=== PATIENT | male | born 1965 | race Two or more races ===

== ENCOUNTER 2020-02-18 17:37 | Inpatient (IN) | payer MEDICAID ==
[~2020-02-18] VITALS: Ht 175.3 cm; Wt 57.2 kg
[~2020-02-18 17:37] MED LIST: ACETAMINOPHEN 650 MG/SUPP.RECT RC PRN; ONDANSETRON HCL/PF 4 MG/2 ML VIAL IVP PRN
--- NOTE | 2020-02-18 18:05 | NUR ---
covid swab collected and sent to lab
[2020-02-18 18:22] LABS: BASOPHILS % (AUTO) 0.1 % (0.0-2.0); EOSINOPHILS % (AUTO) 0.3 % (0.0-6.0); HEMATOCRIT 43 % (39-51); HEMOGLOBIN 13.9 g/dL (13.5-17.5); LYMPHOCYTES # (AUTO) 0.6 /CMM (0.8-4.8); LYMPHOCYTES % (AUTO) 2.5 % (20.0-44.0); MEAN CORPUSCULAR HGB CONC 33 g/dl (31.0-36.0); MEAN CORPUSCULAR VOLUME 90 fL (80-96); NEUTROPHILS # (AUTO) 22.4 /CMM (1.8-8.9); NEUTROPHILS % (AUTO) 93.1 % (43.0-81.0); PLATELET COUNT (AUTO) 195 /CMM (150-450); RED BLOOD CELL COUNT(AUTO) 4.74 MIL/uL (4.5-6.0)
[2020-02-18] MEDS ORDERED: DEXAMETHASONE SOD PHOSPHATE 10 MG/ML VIAL IV ONE (19:00)
[2020-02-18 19:04] LABS: ALANINE AMINOTRANSFERASE 60 U/L (12-78); ALBUMIN 2.2 g/dL (3.4-5.0); ALKALINE PHOSPHATASE 108 U/L (46-116); ASPARTATE AMINOTRANSFERASE 92 U/L (15-37); BILIRUBIN,DIRECT 0.2 mg/dL (0.0-0.2); BILIRUBIN,TOTAL 0.5 mg/dL (0.2-1.0); CALCIUM, SERUM 9.3 mg/dL (8.5-10.1); CARBON DIOXIDE 13 mmol/L (21-32); CHLORIDE 103 mmol/L (98-107); GLUCOSE 145 mg/dL (74-106); SODIUM SERUM 142 mmol/L (136-145); TOTAL PROTEIN, SERUM 7.9 g/dL (6.4-8.2)
--- NOTE | 2020-02-18 19:08 | NUR ---
JUANA ZAZUETA [phone] (MOTHER)
[2020-02-18] MEDS ORDERED: DEXAMETHASONE SOD PHOSPHATE 10 MG/ML VIAL ONE (19:09)
--- NOTE | 2020-02-18 19:14 | NUR ---
LAB CALLED REGARDING POSITIVE COVID RESULT
[2020-02-18 19:16] LABS: POTASSIUM 7.3 mmol/L (3.5-5.1)
[2020-02-18 19:17] LABS: CREATININE 10.7 mg/dL (0.6-1.3); UREA NITROGEN, BLOOD 169 mg/dL (7-18)
[2020-02-18] MEDS ORDERED: DEXTROSE 50%-WATER 50 ML DISP.SYRIN IV ONE (19:30)
[2020-02-18] MEDS ORDERED: SODIUM POLYSTYRENE SULFONATE 15 G/60 ML BOTTLE PO ONE (19:30)
[2020-02-18] MEDS ORDERED: INSULIN REGULAR, HUMAN 100 UNIT/ML 10 ML VIAL IV ONE (19:30)
[2020-02-18] MEDS ORDERED: SODIUM BICARBONATE SYR 50 MEQ/50 ML DISP.SYRIN IV ONE ×3 (19:30→20:00)
--- NOTE | 2020-02-18 19:46 | NUR ---
PAGED [facility].
--- NOTE | 2020-02-18 19:48 | NUR ---
PAGED [facility] FOR CONSULT. WILL CALL BACK.
--- NOTE | 2020-02-18 19:53 | NUR ---
DR. FOWLER TALKING TO DR. MILNER REGARDING PT.
[2020-02-18] MEDS ORDERED: INSULIN REGULAR, HUMAN 100 UNIT/ML 10 ML VIAL ONE (20:02)
[2020-02-18] MEDS ORDERED: SODIUM BICARBONATE SYR 50 MEQ/50 ML DISP.SYRIN ONE ×2 (20:02→20:07)
[2020-02-18] MEDS ORDERED: FUROSEMIDE 20 MG/2 ML VIAL IV STA (20:02)
[2020-02-18] MEDS ORDERED: DEXTROSE 50%-WATER 50 ML DISP.SYRIN ONE (20:02)
[2020-02-18] MEDS ORDERED: FUROSEMIDE 40 MG/4 ML VIAL ONE (20:06)
[2020-02-18] MEDS ORDERED: SODIUM POLYSTYRENE SULFONATE 15 G/60 ML BOTTLE ONE ×2 (20:06→20:08)
[2020-02-18] MEDS ORDERED: Calcium Gluconate 0.465 MEQ/ML VIAL IV ONE (20:26)
--- NOTE | 2020-02-18 20:26 | NUR ---
REPORT GIVEN TO RESEARCH DIETITIAN SERGIO. WILL TRANSPORT PT VIA ACLS PROTOCOL.
[2020-02-18] MEDS ORDERED: Calcium Gluconate 1GM/10ML 9.3 MEQ in IV D5W 250 ML IV ONE (20:30)
--- NOTE | 2020-02-18 20:45 | NUR ---
NO URINE OUTPUT, MD AWARE
[2020-02-18] MEDS ORDERED: PIPERACILLIN /TAZOBACTAM 3.375 G VIAL IV ONE (20:47)
[2020-02-18] MEDS ORDERED: AZITHROMYCIN 500 MG VIAL ONE (20:47)
[2020-02-18] MEDS ORDERED: PIPERACILLIN /TAZOBACTAM 3.375 G in IV D5W 50 ML IV ONE (21:00)
[2020-02-18] MEDS ORDERED: AZITHROMYCIN 500 MG in IV D5W 250 ML IV ONE (21:00)
[2020-02-18] MEDS ORDERED: DOXA4TAB3 GT (21:01)
[2020-02-18] MEDS ORDERED: MAGN400T8 GT (21:01)
[2020-02-18] MEDS ORDERED: VIT500LI GT (21:01)
[2020-02-18] MEDS ORDERED: ZINC220T4 GT (21:01)
[2020-02-18] MEDS ORDERED: CYCL10TA9 GT (21:01)
[2020-02-18] MEDS ORDERED: BACL10TA GT (21:01)
[2020-02-18] MEDS ORDERED: ENOX40DI SQ (21:01)
[2020-02-18] MEDS ORDERED: DOCU-141 GT (21:01)
[2020-02-18] MEDS ORDERED: DIPH-530 GT (21:01)
[2020-02-18] MEDS ORDERED: ZINC500P16 MC (21:01)
[2020-02-18] MEDS ORDERED: SENN-18 GT (21:01)
[2020-02-18] MEDS ORDERED: CRAN3875 GT (21:01)
[2020-02-18] MEDS ORDERED: HALO5TAB GT (21:01)
[2020-02-18] MEDS ORDERED: PANT40TA2 GT (21:01)
[2020-02-18] MEDS ORDERED: MULT237L4 GT (21:01)
[2020-02-18] MEDS ORDERED: ALBUTEROL SULFATE 8 GM HFA.AER.AD IH PRN (21:30)
--- NOTE | 2020-02-18 21:33 | NUR ---
PT TRANSFERRED TO ICU PER ACLS PROTOCOL
[2020-02-18 22:00] VITALS: BP 111/55
[2020-02-18] MEDS: IV NS 0.9% 1,000 ML IV PRN (22:00)
[2020-02-18 22:33] LABS: ABG BASE EXCESS -11.3 mmol/L; ABG OXYGEN SATURATION 99.7 % (92.0-98.5); ABG PCO2 24.9 mmHg (35.0-45.0); ABG PH 7.332 (7.350-7.450); ABG PO2 247.1 mmHg (75.0-100.0); COHb 0.9 % (0.5-1.5); MetHb 0.3 % (0.0-1.5); O2Hb 98.5 % (94.0-97.0); SITE, ABG Right Brachial; VENT MODE, BG Non rebreather
[2020-02-18 23:00] VITALS: BP 99/40
[2020-02-18] MEDS ORDERED: VANCOMYCIN HCL 0.75 GM in IV D5W 250 ML IV ONE (23:00)
[2020-02-18] MEDS ORDERED: VANCOMYCIN 1 GM VIAL ONE (23:35)
[2020-02-19] VITALS (44 sets, daily range): BP systolic 79–113; BP diastolic 46–76
[2020-02-19 00:38] LABS: CALCIUM, SERUM 8.7 mg/dL (8.5-10.1)
[2020-02-19 00:41] LABS: CREATININE 10.2 mg/dL (0.6-1.3); POTASSIUM 6.7 mmol/L (3.5-5.1)
[2020-02-19 00:42] LABS: PHOSPHORUS 8.4 mg/dL (2.5-4.9)
[2020-02-19 01:05] LABS: BILIRUBIN,URINE SMALL (NEGATIVE); COLOR,URINE BROWN (YELLOW); LEUKOCYTE ESTERASE ,URINE LARGE (NEGATIVE); NITRITE, URINE NEGATIVE (NEGATIVE); PH,URINE 8.5 (5.0-8.0); PROTEIN,URINE >=300 mg/dl (NEGATIVE); UGLUCOSE NEGATIVE (NEGATIVE); UROBILINOGEN,URINE 0.2 EU/dL (0.2)
[2020-02-19 01:15] LABS: BACTERIA,URINE Moderate /HPF (None Seen); RBC,URINE 51-80 /HPF (0-2); WBC,URINE TOO NUMEROUS TO COUN /HPF (0-3)
[2020-02-19 01:16] LABS: SQUAMOUS EPITHELIAL CELL,UR Rare /HPF (None Seen)
[2020-02-19 05:43] LABS: ALBUMIN 1.7 g/dL (3.4-5.0); BILIRUBIN,TOTAL 0.6 mg/dL (0.2-1.0); CALCIUM, SERUM 8.1 mg/dL (8.5-10.1); MAGNESIUM 2.6 mg/dL (1.8-2.4); POTASSIUM 4.8 mmol/L (3.5-5.1); TOTAL PROTEIN, SERUM 6.3 g/dL (6.4-8.2)
[2020-02-19 05:47] LABS: CREATININE 10.2 mg/dL (0.6-1.3)
[2020-02-19 06:03] LABS: C-REACTIVE PROTEIN 39.6 mg/dL (0.0-0.9)
[2020-02-19 06:23] LABS: BASOPHILS % (AUTO) 0.2 % (0.0-2.0); EOSINOPHILS % (AUTO) 7.1 % (0.0-6.0); HEMATOCRIT 36 % (39-51); HEMOGLOBIN 11.9 g/dL (13.5-17.5); LYMPHOCYTES # (AUTO) 0.4 /CMM (0.8-4.8); LYMPHOCYTES % (AUTO) 2.1 % (20.0-44.0); MEAN CORPUSCULAR HGB CONC 33 g/dl (31.0-36.0); MEAN CORPUSCULAR VOLUME 91 fL (80-96); MONOCYTES # (AUTO) 0.6 /CMM (0.1-1.30); NEUTROPHILS # (AUTO) 18.7 /CMM (1.8-8.9); NEUTROPHILS % (AUTO) 87.6 % (43.0-81.0); PLATELET COUNT (AUTO) 65 /CMM (150-450); RED BLOOD CELL COUNT(AUTO) 4.01 MIL/uL (4.5-6.0); WHITE BLOOD COUNT (AUTO) 21.3 K/uL (4.3-11.0)
--- NOTE | 2020-02-19 06:52 | NUR ---
notified Gwendolyn Tuttle KENNEL HELPER about patients low blood pressure and received orders to start levo to keep sbp > 90. Also notified about critical lab values of lactic acid 3.4 and received orders to give a 500 ml bolus x 1. As well as, platelets at 65 with no new orders. read back orders performed and carried out. will continue to monitor.
[2020-02-19] MEDS ORDERED: IV NS 0.9% 500 ML IV ONE (07:00)
[2020-02-19] MEDS ORDERED: VANCOMYCIN 500 MG in IV D5W 100 ML IV PRN (08:30)
--- NOTE | 2020-02-19 08:31 | NUR ---
patient remains in no acute distress in bed. patient did not have any significant change in condition during shift. all needs met, all orders carried out. will endorse care to am RN for continuity fo care.
[2020-02-19 08:41] LABS: ABG OXYGEN SATURATION 97.3 % (92.0-98.5); ABG PCO2 25.1 mmHg (35.0-45.0); ABG PH 7.357 (7.350-7.450); ABG PO2 105.8 mmHg (75.0-100.0); AaDO2 294.4 mmHg; COHb 0.1 % (0.5-1.5); MetHb 0.2 % (0.0-1.5); SITE, ABG Right Radial; VENT MODE, BG SIMPLE MASK
[2020-02-19] MEDS: CALCIUM ACETATE 667 MG TABLET PO SCH ×3 (09:29→19:02)
[2020-02-19] MEDS: DEXAMETHASONE SOD PHOSPHATE 10 MG/ML VIAL IV SCH (09:29)
[2020-02-19] MEDS ORDERED: Z GUARD REMEDY 2 OZ OINT TP PRN (09:30)
[2020-02-19 09:32] LABS: BAND % (MANUAL) 11 % (0.0-5.0); LYMPHOCYTES % (MANUAL) 4 % (16-48); MONOCYTES % (MANUAL) 2 % (0-11.0); MYELOCYTES % 1 % (0-0); NEUTROPHILS % (MANUAL) 82 (42-76)
--- NOTE | 2020-02-19 09:33 | NUR ---
WOUND CARE CONSULT: REVIEWED CHART, NURSING DOCUMENTATION AND PHOTOS WHICH INDICATE INTACT DEEP TISSUE INJURIES, PRESENT ON ADMISSION. RECOMMENDATIONS MADE FOR SKIN PROTECTION AND WOUND CARE. DISCUSSED WITH NURSING STAFF. FIRST STEP KATHY BARAKAT IS ON ORDER. MD IN AGREEMENT WITH PLAN OF CARE.
[2020-02-19] MEDS: Z GUARD REMEDY 2 OZ OINT TP SCH (09:35)
[2020-02-19] MEDS ORDERED: HEPARIN SODIUM, PORCINE 5000 UNITS/1 ML VIAL SQ SCH (10:30)
[2020-02-19] MEDS: PIPERACILLIN /TAZOBACTAM 2.25 G in IV D5W 50 ML IV SCH ×2 (11:15→16:22)
[2020-02-19] MEDS: NOREPINEPHRINE 32 MG in IV NS 0.9% 218 ML IV PRN (11:37)
--- NOTE | 2020-02-19 19:00 | NUR ---
RECEIVED PATIENT LETHARGIC,AWAKENS TO TOUCH AND PAIN BUT NOT TALKING,NOT FOLLOWING COMMANDS.CONTRACTED EXTREMITIES.ON O2 VIA NC @ 6 L/MIN, BREATHING REGULAR, NON LABORED,NOT IN ANY ACUTE RESPIRATORY DISTRESS. ON LEVOPHED DRIP FOR HOLLY SUPPORT,TRIPLE LUMEN CATH.VIA RIGHT SUBCLAVIAN, HD CATH @ RIGHT FEMORAL AREA, S/P HD TODAY. COMFORT CARE DONE,NEEDS ATTENDED.ON DROPLET/CONTACT PRECAUTION FOR COVID 19
[2020-02-19] MEDS: MEROPENEM 500 MG in IV NS 0.9% 50 ML IV SCH (20:46)
[2020-02-19] MEDS: IV NS 0.9% 1,000 ML IV PRN (23:12)
--- NOTE | 2020-02-19 23:57 | NUR ---
LAB CALLED.COVID PCR TEST + .
[2020-02-20] VITALS (76 sets, daily range): BP systolic 74–132; BP diastolic 44–95
[2020-02-20 04:42] LABS: BASOPHILS # (AUTO) 0.1 /CMM (0.0-0.2); BASOPHILS % (AUTO) 0.3 % (0.0-2.0); EOSINOPHILS % (AUTO) 0.3 % (0.0-6.0); HEMATOCRIT 34 % (39-51); HEMOGLOBIN 11.3 g/dL (13.5-17.5); LYMPHOCYTES # (AUTO) 0.5 /CMM (0.8-4.8); LYMPHOCYTES % (AUTO) 1.5 % (20.0-44.0); MEAN CORPUSCULAR HGB CONC 33 g/dl (31.0-36.0); MEAN CORPUSCULAR VOLUME 90 fL (80-96); MONOCYTES # (AUTO) 1.6 /CMM (0.1-1.30); MONOCYTES % (AUTO) 4.9 % (2.0-12.0); NEUTROPHILS # (AUTO) 31.1 /CMM (1.8-8.9); RED BLOOD CELL COUNT(AUTO) 3.84 MIL/uL (4.5-6.0)
[2020-02-20 04:54] LABS: CALCIUM, SERUM 7.9 mg/dL (8.5-10.1); CREATININE 6.7 mg/dL (0.6-1.3); MAGNESIUM 2.6 mg/dL (1.8-2.4); PHOSPHORUS 7.6 mg/dL (2.5-4.9); POTASSIUM 3.8 mmol/L (3.5-5.1)
[2020-02-20 04:55] LABS: PLATELET COUNT (AUTO) 29 /CMM (150-450); WHITE BLOOD COUNT (AUTO) 33.4 K/uL (4.3-11.0)
[2020-02-20 05:32] LABS: BAND % (MANUAL) 11 % (0.0-5.0); LYMPHOCYTES % (MANUAL) 2 % (16-48); MONOCYTES % (MANUAL) 8 % (0-11.0); NEUTROPHILS % (MANUAL) 79 (42-76)
[2020-02-20] MEDS: Z GUARD REMEDY 2 OZ OINT TP SCH (08:25)
[2020-02-20] MEDS: DEXAMETHASONE SOD PHOSPHATE 10 MG/ML VIAL IV SCH (08:25)
[2020-02-20] MEDS: CALCIUM ACETATE 667 MG TABLET PO SCH ×3 (08:25→18:28)
[2020-02-20] MEDS: NOREPINEPHRINE 32 MG in IV NS 0.9% 218 ML IV PRN (10:06)
[2020-02-20] MEDS: MEROPENEM 500 MG in IV NS 0.9% 50 ML IV SCH (20:39)
[2020-02-20] MEDS: IV 1/2NS 1000 ML 1,000 ML IV PRN (20:44)
[2020-02-21] VITALS (74 sets, daily range): BP systolic 80–154; BP diastolic 50–95
[2020-02-21] MEDS: IV 1/2NS 1000 ML 1,000 ML IV PRN ×2 (05:20→22:41)
[2020-02-21 05:38] LABS: BASOPHILS % (AUTO) 0.2 % (0.0-2.0); HEMATOCRIT 35 % (39-51); HEMOGLOBIN 11.6 g/dL (13.5-17.5); LYMPHOCYTES # (AUTO) 0.8 /CMM (0.8-4.8); MEAN CORPUSCULAR HGB CONC 33 g/dl (31.0-36.0); MEAN CORPUSCULAR VOLUME 89 fL (80-96); MONOCYTES # (AUTO) 1.4 /CMM (0.1-1.30); NEUTROPHILS # (AUTO) 24.8 /CMM (1.8-8.9); NEUTROPHILS % (AUTO) 91.8 % (43.0-81.0); RED BLOOD CELL COUNT(AUTO) 3.95 MIL/uL (4.5-6.0)
[2020-02-21 05:40] LABS: PLATELET COUNT (AUTO) 17 /CMM (150-450)
[2020-02-21 06:06] LABS: COMPLEMENT C3, SERUM 126 mg/dL (82-167); COMPLEMENT C4, SERUM 24 mg/dL (12-38)
[2020-02-21 06:08] LABS: BAND % (MANUAL) 2 % (0.0-5.0); LYMPHOCYTES % (MANUAL) 2 % (16-48); MONOCYTES % (MANUAL) 3 % (0-11.0); NEUTROPHILS % (MANUAL) 93 (42-76)
[2020-02-21 06:12] LABS: BILIRUBIN,TOTAL 0.6 mg/dL (0.2-1.0); CALCIUM, SERUM 8.1 mg/dL (8.5-10.1); MAGNESIUM 2.3 mg/dL (1.8-2.4); PHOSPHORUS 5.8 mg/dL (2.5-4.9)
[2020-02-21 06:51] LABS: ALBUMIN 1.4 g/dL (3.4-5.0)
--- NOTE | 2020-02-21 07:30 | NUR ---
RECEIVED PATIENT IN BED. NO ACUTE DISTRESS NOTED. PATIENT NONVERBAL, OPENS EYES TO SOUND, UNABLE TO FOLLOW COMMANDS. PATIENT ON NONREBREATHER, 8L SATURATING WELL. PATIENT ON CONTAINER SHOP WELDER, NSR NOTED. PATIENT NPO STATUS OBSERVED, WILL ORDER SWALLOW EVAL. PATIENT DOMINGUEZ CATHETER INTACT, DRAINING TO GRAVITY. PATIENT TLC RIGHT SUBCLAVIAN INTACT, PATENT, FLUSHED WELL. PATIENT SAFETY MEASURES MAINTAINED. WILL CONTINUE TO MONITOR.
[2020-02-21] MEDS: CALCIUM ACETATE 667 MG TABLET PO SCH ×3 (08:00→17:59)
[2020-02-21] MEDS: Z GUARD REMEDY 2 OZ OINT TP SCH (08:45)
[2020-02-21] MEDS: DEXAMETHASONE SOD PHOSPHATE 10 MG/ML VIAL IV SCH (08:45)
[2020-02-21 08:51] LABS: ABG BASE EXCESS -1.9 mmol/L; ABG OXYGEN SATURATION 90.9 % (92.0-98.5); ABG PCO2 28.9 mmHg (35.0-45.0); ABG PH 7.472 (7.350-7.450); ABG PO2 63.2 mmHg (75.0-100.0); AaDO2 620.9 mmHg; COHb 1.1 % (0.5-1.5); MetHb 0.1 % (0.0-1.5); O2Hb 89.8 % (94.0-97.0); SITE, ABG Left Radial; VENT MODE, BG NRB
[2020-02-21 16:32] LABS: HEMOGLOBIN 12.1 g/dL (13.5-17.5); MEAN CORPUSCULAR HGB CONC 33 g/dl (31.0-36.0); RED BLOOD CELL COUNT(AUTO) 4.17 MIL/uL (4.5-6.0)
[2020-02-21 16:37] LABS: BASOPHILS % (AUTO) 0.1 % (0.0-2.0); HEMATOCRIT 37 % (39-51); LYMPHOCYTES # (AUTO) 0.6 /CMM (0.8-4.8); LYMPHOCYTES % (AUTO) 2.7 % (20.0-44.0); MEAN CORPUSCULAR VOLUME 89 fL (80-96); MONOCYTES # (AUTO) 0.6 /CMM (0.1-1.30); MONOCYTES % (AUTO) 2.7 % (2.0-12.0); NEUTROPHILS # (AUTO) 21.8 /CMM (1.8-8.9); NEUTROPHILS % (AUTO) 94.5 % (43.0-81.0); WHITE BLOOD COUNT (AUTO) 23.1 K/uL (4.3-11.0)
[2020-02-21 17:26] LABS: PLATELET COUNT (AUTO) 17 /CMM (150-450)
[2020-02-21] MEDS ORDERED: NOREPINEPHRINE 8 MG in IV NS 0.9% 250ML IV PRN (18:00)
--- NOTE | 2020-02-21 18:42 | NUR ---
PATIENT IN BED. NO ACUTE DISTRESS NOTED. PATIENT NONVERBAL, OPENS EYES TO SOUND, UNABLE TO FOLLOW COMMANDS. PATIENT ON NONREBREATHER, 15L SATURATING WELL. PATIENT ON FINANCIAL SYSTEMS ADMINISTRATOR, NSR NOTED. PATIENT NPO STATUS OBSERVED, WILL ORDER SWALLOW EVAL. PATIENT DOMINGUEZ CATHETER INTACT, DRAINING TO GRAVITY. PATIENT TLC RIGHT SUBCLAVIAN INTACT, PATENT, FLUSHED WELL. PATIENT SAFETY MEASURES MAINTAINED. WILL ENDORSE PLAN OF CARE TO ONCOMING SHIFT
[2020-02-21 18:45] LABS: BAND % (MANUAL) 1 % (0.0-5.0); LYMPHOCYTES % (MANUAL) 6 % (16-48); NEUTROPHILS % (MANUAL) 93 (42-76)
[2020-02-21] MEDS: NOREPINEPHRINE 32 MG in IV NS 0.9% 218 ML IV PRN (20:08)
--- NOTE | 2020-02-21 21:33 | NUR ---
agricultural economics teacher. initial assessment. received the pt rest on the bed. nonverbal. does not follow commands. cardiac surgeon showing nsr, iv rt subclavian triple lumen , lt femoral hd cath. levophed 0.15mcg/kg/min,hob elevated. fc patent. oxygen nonrebreather will continue to monitor vitals
[2020-02-21] MEDS: MEROPENEM 500 MG in IV NS 0.9% 50 ML IV SCH (22:41)
[2020-02-22] VITALS (68 sets, daily range): BP systolic 98–144; BP diastolic 55–91
--- NOTE | 2020-02-22 04:00 | NUR ---
RENTAL COORDINATOR. AM CARE, ORAL CARE, BED BATH GIVEN. LINEN CHANGED. REMAINING SAME OXYGEN TOLERATED WELL. SAT 98%,. NO ACUTE DISTRESS NOTED, BLOCK MAKING MACHINE OPERATOR SHOWING NSR. IV RT SUBCLAVIAN TLC. 11/2NS 50ML/H,LEVOPHED 0.15MCG/KG/MIN, HOB ELEVATED. FC PATENT. VERY LOW OUT PUT. WILL CONTINUE TO MONITOR VITALS.
[2020-02-22 04:33] LABS: BASOPHILS % (AUTO) 0.1 % (0.0-2.0); EOSINOPHILS % (AUTO) 0.1 % (0.0-6.0); HEMATOCRIT 36 % (39-51); HEMOGLOBIN 12.1 g/dL (13.5-17.5); LYMPHOCYTES # (AUTO) 0.7 /CMM (0.8-4.8); LYMPHOCYTES % (AUTO) 2.9 % (20.0-44.0); MEAN CORPUSCULAR HGB CONC 33 g/dl (31.0-36.0); MEAN CORPUSCULAR VOLUME 89 fL (80-96); MONOCYTES # (AUTO) 0.9 /CMM (0.1-1.30); MONOCYTES % (AUTO) 3.6 % (2.0-12.0); NEUTROPHILS # (AUTO) 23.1 /CMM (1.8-8.9); NEUTROPHILS % (AUTO) 93.3 % (43.0-81.0); RED BLOOD CELL COUNT(AUTO) 4.09 MIL/uL (4.5-6.0); WHITE BLOOD COUNT (AUTO) 24.8 K/uL (4.3-11.0)
[2020-02-22 04:43] LABS: PLATELET COUNT (AUTO) 16 /CMM (150-450)
[2020-02-22 05:01] LABS: ALBUMIN 1.5 g/dL (3.4-5.0); BILIRUBIN,TOTAL 0.8 mg/dL (0.2-1.0); CALCIUM, SERUM 8.1 mg/dL (8.5-10.1); MAGNESIUM 2.2 mg/dL (1.8-2.4); PHOSPHORUS 6.3 mg/dL (2.5-4.9); POTASSIUM 4.1 mmol/L (3.5-5.1); TOTAL PROTEIN, SERUM 6.2 g/dL (6.4-8.2)
[2020-02-22 05:06] LABS: BAND % (MANUAL) 2 % (0.0-5.0); LYMPHOCYTES % (MANUAL) 4 % (16-48); MONOCYTES % (MANUAL) 4 % (0-11.0); NEUTROPHILS % (MANUAL) 90 (42-76)
--- NOTE | 2020-02-22 07:30 | NUR ---
RECEIVED PATIENT IN BED. NO ACUTE DISTRESS NOTED. PATIENT NONVERBAL, OPENS EYES TO SOUND, UNABLE TO FOLLOW COMMANDS. PATIENT ON NONREBREATHER, 15L SATURATING WELL, RT IN ROOM MAKING ROUNDS. PATIENT ON DIRECTOR NEWS, NSR NOTED. PATIENT NPO STATUS OBSERVED, WILL FOLLOW UP WITH SWALLOW EVAL. PATIENT DOMINGUEZ CATHETER INTACT, DRAINING TO GRAVITY. PATIENT TLC RIGHT SUBCLAVIAN INTACT, PATENT, FLUSHED WELL. PATIENT SAFETY MEASURES MAINTAINED. WILL CONTINUE TO MONITOR.
[2020-02-22] MEDS: CALCIUM ACETATE 667 MG TABLET PO SCH ×3 (08:00→17:18)
[2020-02-22] MEDS: Z GUARD REMEDY 2 OZ OINT TP SCH (08:23)
[2020-02-22] MEDS: DEXAMETHASONE SOD PHOSPHATE 10 MG/ML VIAL IV SCH (08:23)
[2020-02-22 12:06] LABS: *ANA ANTI-CENTROMERE B AB <0.2 AI (0.0-0.9); *ANA ANTI-DNA(DS) AB, QN <1 IU/mL (0-9); *ANA ANTI-JO-1 <0.2 AI (0.0-0.9); *ANA ANTICHROMATIN ANTIBODY <0.2 AI (0.0-0.9); *ANA RNP ANTIBODIES 0.3 AI (0.0-0.9); *ANA SJOGREN'S ANTI-SS-A <0.2 AI (0.0-0.9); *ANA SJOGREN'S ANTI-SS-B <0.2 AI (0.0-0.9); *ANAANTI-SCLERODERMA-70 AB <0.2 AI (0.0-0.9); *ANASMITH AB <0.2 AI (0.0-0.9)
[2020-02-22 12:36] LABS: ABG BASE EXCESS -1.7 mmol/L; ABG OXYGEN SATURATION 92.2 % (92.0-98.5); ABG PCO2 31.6 mmHg (35.0-45.0); ABG PO2 67.3 mmHg (75.0-100.0); AaDO2 614.1 mmHg; COHb 1.3 % (0.5-1.5); MetHb 0.3 % (0.0-1.5); O2Hb 90.7 % (94.0-97.0); SITE, ABG Right Radial; VENT MODE, BG NRB 100%
[2020-02-22] MEDS: MEROPENEM 500 MG in IV NS 0.9% 50 ML IV SCH (13:14)
[2020-02-22] MEDS: IV 1/2NS 1000 ML 1,000 ML IV PRN (18:18)
--- NOTE | 2020-02-22 18:38 | NUR ---
PATIENT IN BED. NO ACUTE DISTRESS NOTED. PATIENT NONVERBAL, OPENS EYES TO SOUND, UNABLE TO FOLLOW COMMANDS. PATIENT ON NONREBREATHER, 15L SATURATING WELL. PATIENT ON TELLER COORDINATOR, NSR NOTED. PATIENT DOMINGUEZ CATHETER INTACT, DRAINING TO GRAVITY. PATIENT TLC RIGHT SUBCLAVIAN INTACT, PATENT, FLUSHED WELL. PATIENT SAFETY MEASURES MAINTAINED. WILL ENDORSE PLAN OF CARE TO ONCOMING SHIFT
--- NOTE | 2020-02-22 19:58 | NUR ---
RECEIVED PATIENT IN BED. PATIENT NONVERBAL, OPENS EYES TO SOUND, UNABLE TO FOLLOW COMMANDS. PATIENT ON NONREBREATHER, 15L SATURATING WELL. ON LOGISTICS ACCOUNT MANAGER, NSR NOTED. PATIENT NPO STATUS OBSERVED, PATIENT DOMINGUEZ CATHETER INTACT, DRAINING TO GRAVITY. PATIENT TLC RIGHT SUBCLAVIAN INTACT, PATENT, FLUSHED WELL WITH NS. BED LOCKED AND IN LOWEST POSITION. ALL SAFETY MEASURES IMPLEMENTED PER HOSPITAL PROTOCOL. WILL CONTINUE TO MONITOR.
[2020-02-23] VITALS (83 sets, daily range): BP systolic 76–134; BP diastolic 50–94
[2020-02-23] MEDS: MEROPENEM 500 MG in IV NS 0.9% 50 ML IV SCH ×2 (01:09→12:36)
[2020-02-23 05:17] LABS: BILIRUBIN,TOTAL 0.8 mg/dL (0.2-1.0); CALCIUM, SERUM 8.2 mg/dL (8.5-10.1); CREATININE 3.9 mg/dL (0.6-1.3); MAGNESIUM 2.3 mg/dL (1.8-2.4); PHOSPHORUS 5.9 mg/dL (2.5-4.9)
[2020-02-23 05:20] LABS: ALBUMIN 1.4 g/dL (3.4-5.0)
[2020-02-23 05:27] LABS: BASOPHILS % (AUTO) 0.1 % (0.0-2.0); HEMATOCRIT 37 % (39-51); HEMOGLOBIN 11.9 g/dL (13.5-17.5); LYMPHOCYTES # (AUTO) 0.6 /CMM (0.8-4.8); LYMPHOCYTES % (AUTO) 2.3 % (20.0-44.0); MEAN CORPUSCULAR HGB CONC 32 g/dl (31.0-36.0); MEAN CORPUSCULAR VOLUME 90 fL (80-96); MONOCYTES # (AUTO) 0.1 /CMM (0.1-1.30); MONOCYTES % (AUTO) 0.4 % (2.0-12.0); NEUTROPHILS # (AUTO) 23.4 /CMM (1.8-8.9); NEUTROPHILS % (AUTO) 97.2 % (43.0-81.0); RED BLOOD CELL COUNT(AUTO) 4.07 MIL/uL (4.5-6.0); WHITE BLOOD COUNT (AUTO) 24.1 K/uL (4.3-11.0)
[2020-02-23 05:38] LABS: PLATELET COUNT (AUTO) 22 /CMM (150-450)
[2020-02-23 06:15] LABS: D-DIMER 27.68 mg/L(FEU (0.17-0.50)
[2020-02-23 06:38] LABS: LYMPHOCYTES % (MANUAL) 1 % (16-48); NEUTROPHILS % (MANUAL) 98 (42-76); REACTIVE LYMPHOCYTES 1 % (0-0)
[2020-02-23 07:06] LABS: IMMUNOGLOBULIN A, SERUM 345 mg/dL (90-386); IMMUNOGLOBULIN G, SERUM 851 mg/dL (603-1613); IMMUNOGLOBULIN M, SERUM 95 mg/dL (20-172)
--- NOTE | 2020-02-23 07:20 | NUR ---
PATIENT IN BED. PATIENT NONVERBAL, OPENS EYES TO VERBAL AND TACTILE STIMULI, UNABLE TO FOLLOW COMMANDS. PATIENT ON NONREBREATHER, 15L SATURATING 90-94% ON MARKETING TRAFFIC COORDINATOR, NSR NOTED. PATIENT NPO STATUS OBSERVED, PATIENT DOMINGUEZ CATHETER INTACT, DRAINING TO GRAVITY OUTPUT 700CC DEMI TO RED COLOR. PATIENT TLC RIGHT SUBCLAVIAN INTACT, PATENT, FLUSHED WELL WITH NS. WILL ENDORSE TO ONCOMING SHIFT.
[2020-02-23] MEDS: CALCIUM ACETATE 667 MG TABLET PO SCH ×3 (08:00→18:00)
--- NOTE | 2020-02-23 08:31 | NUR ---
ATTEMPTED TO ADMINISTER PHOS LO 667MG PO, BUT PT NOT FOLLOWING DIRECTIONS. Addendum: 02/23/20 at 1027 by HAZEL FLANAGAN RN PT ON NPO STATUS
[2020-02-23] MEDS: Z GUARD REMEDY 2 OZ OINT TP SCH (08:34)
[2020-02-23] MEDS: DEXAMETHASONE SOD PHOSPHATE 10 MG/ML VIAL IV SCH (08:34)
[2020-02-23] MEDS: NOREPINEPHRINE 32 MG in IV NS 0.9% 218 ML IV PRN (11:34)
--- NOTE | 2020-02-23 18:50 | NUR ---
ICU NOTES PT IN STABLE CONDITION. WILL ENDORSE TO NEXT SHIFT.
[2020-02-23] MEDS: NOREPINEPHRINE 8 MG in IV NS 0.9% 242 ML IV PRN (21:45)
[2020-02-23] MEDS: IV 1/2NS 1000 ML 1,000 ML IV PRN (21:47)
[2020-02-24] VITALS (93 sets, daily range): BP systolic 60–135; BP diastolic 25–95
[2020-02-24] MEDS: MEROPENEM 500 MG in IV NS 0.9% 50 ML IV SCH ×2 (01:15→13:04)
[2020-02-24 04:49] LABS: BASOPHILS % (AUTO) 0.1 % (0.0-2.0); HEMATOCRIT 36 % (39-51); HEMOGLOBIN 11.7 g/dL (13.5-17.5); LYMPHOCYTES # (AUTO) 0.5 /CMM (0.8-4.8); LYMPHOCYTES % (AUTO) 1.7 % (20.0-44.0); MEAN CORPUSCULAR HGB CONC 32 g/dl (31.0-36.0); MEAN CORPUSCULAR VOLUME 91 fL (80-96); MONOCYTES # (AUTO) 0.2 /CMM (0.1-1.30); MONOCYTES % (AUTO) 0.7 % (2.0-12.0); NEUTROPHILS % (AUTO) 97.5 % (43.0-81.0); RED BLOOD CELL COUNT(AUTO) 3.98 MIL/uL (4.5-6.0)
[2020-02-24 05:05] LABS: CALCIUM, SERUM 8.4 mg/dL (8.5-10.1); CREATININE 3.2 mg/dL (0.6-1.3); MAGNESIUM 2.3 mg/dL (1.8-2.4); PHOSPHORUS 5.3 mg/dL (2.5-4.9)
[2020-02-24 05:08] LABS: PLATELET COUNT (AUTO) 40 /CMM (150-450); WHITE BLOOD COUNT (AUTO) 31.8 K/uL (4.3-11.0)
[2020-02-24 06:39] LABS: BAND % (MANUAL) 1 % (0.0-5.0); LYMPHOCYTES % (MANUAL) 1 % (16-48); METAMYELOCYTES % 1 % (0-0); MONOCYTES % (MANUAL) 3 % (0-11.0); NEUTROPHILS % (MANUAL) 94 (42-76)
[2020-02-24] MEDS: CALCIUM ACETATE 667 MG TABLET PO SCH ×3 (07:59→17:33)
[2020-02-24] MEDS: DEXAMETHASONE SOD PHOSPHATE 10 MG/ML VIAL IV SCH (08:42)
[2020-02-24] MEDS: Z GUARD REMEDY 2 OZ OINT TP SCH (08:43)
[2020-02-24 11:06] LABS: *SPE A/G RATIO 0.5 (0.7-1.7); *SPE ALBUMIN 1.7 g/dL (2.9-4.4); *SPE ALPHA-1-GLOBULIN 0.5 g/dL (0.0-0.4); *SPE ALPHA-2-GLOBULIN 1.3 g/dL (0.4-1.0); *SPE BETA GLOBULIN 1.1 g/dL (0.7-1.3); *SPE GLOBULIN, TOTAL 3.7 g/dL (2.2-3.9); *SPE M-SPIKE Not Observed g/dL (Not Observed); *SPEGAMMA GLOBULIN 0.8 g/dL (0.4-1.8)
[2020-02-24] MEDS: IV 1/2NS 1000 ML 1,000 ML IV PRN (14:26)
[2020-02-24] MEDS: NOREPINEPHRINE 8 MG in IV NS 0.9% 242 ML IV PRN (14:26)
[2020-02-24 17:28] LABS: ABG BASE EXCESS 0.3 mmol/L; ABG OXYGEN SATURATION 88.8 % (92.0-98.5); ABG PCO2 30.3 mmHg (35.0-45.0); ABG PH 7.495 (7.350-7.450); ABG PO2 58.9 mmHg (75.0-100.0); AaDO2 623.8 mmHg; COHb 1.4 % (0.5-1.5); MetHb 0.1 % (0.0-1.5); O2Hb 87.5 % (94.0-97.0); SITE, ABG Left Radial; VENT MODE, BG NRB 100%
[2020-02-25] VITALS (93 sets, daily range): BP systolic 74–146; BP diastolic 33–110
[2020-02-25] MEDS: MEROPENEM 500 MG in IV NS 0.9% 50 ML IV SCH ×2 (01:31→13:42)
[2020-02-25] MEDS: NOREPINEPHRINE 8 MG in IV NS 0.9% 242 ML IV PRN ×2 (02:05→17:00)
[2020-02-25 04:44] LABS: HEMATOCRIT 32 % (39-51); HEMOGLOBIN 10.3 g/dL (13.5-17.5); LYMPHOCYTES # (AUTO) 0.4 /CMM (0.8-4.8); LYMPHOCYTES % (AUTO) 1.6 % (20.0-44.0); MEAN CORPUSCULAR HGB CONC 33 g/dl (31.0-36.0); MEAN CORPUSCULAR VOLUME 92 fL (80-96); MONOCYTES # (AUTO) 0.3 /CMM (0.1-1.30); MONOCYTES % (AUTO) 1.2 % (2.0-12.0); NEUTROPHILS # (AUTO) 26.3 /CMM (1.8-8.9); NEUTROPHILS % (AUTO) 97.2 % (43.0-81.0); PLATELET COUNT (AUTO) 64 /CMM (150-450); RED BLOOD CELL COUNT(AUTO) 3.44 MIL/uL (4.5-6.0); WHITE BLOOD COUNT (AUTO) 27.1 K/uL (4.3-11.0)
[2020-02-25 04:54] LABS: CALCIUM, SERUM 8.2 mg/dL (8.5-10.1); CREATININE 2.8 mg/dL (0.6-1.3); MAGNESIUM 2.2 mg/dL (1.8-2.4); POTASSIUM 3.8 mmol/L (3.5-5.1)
[2020-02-25 05:16] LABS: LYMPHOCYTES % (MANUAL) 3 % (16-48); MONOCYTES % (MANUAL) 4 % (0-11.0); NEUTROPHILS % (MANUAL) 93 (42-76)
[2020-02-25] MEDS: CALCIUM ACETATE 667 MG TABLET PO SCH ×3 (07:27→17:08)
[2020-02-25] MEDS: Z GUARD REMEDY 2 OZ OINT TP SCH (08:30)
[2020-02-25] MEDS: DEXAMETHASONE SOD PHOSPHATE 10 MG/ML VIAL IV SCH (08:30)
[2020-02-25 10:41] LABS: ABG BASE EXCESS -1.6 mmol/L; ABG OXYGEN SATURATION 90.9 % (92.0-98.5); ABG PCO2 29.7 mmHg (35.0-45.0); ABG PH 7.473 (7.350-7.450); ABG PO2 65.4 mmHg (75.0-100.0); AaDO2 617.9 mmHg; COHb 1.5 % (0.5-1.5); MetHb 0.3 % (0.0-1.5); O2Hb 89.3 % (94.0-97.0); SITE, ABG Left Radial; VENT MODE, BG non rebreather
[2020-02-25] MEDS: IV 1/2NS 1000 ML 1,000 ML IV PRN (12:21)
--- NOTE | 2020-02-25 20:11 | NUR ---
RT NOTE PT RECEIVED ON NRB 100% HR 99. SPO2 96% AND RR 18. NO S/S OF SOB OR DISTRESS NOTED. WILL CONTINUE TO MONITOR T/O SHIFT.
[2020-02-26] VITALS (91 sets, daily range): BP systolic 65–128; BP diastolic 30–81
[2020-02-26] MEDS: MEROPENEM 500 MG in IV NS 0.9% 50 ML IV SCH ×2 (00:52→12:15)
[2020-02-26 04:30] LABS: HEMATOCRIT 30 % (39-51); HEMOGLOBIN 9.7 g/dL (13.5-17.5); LYMPHOCYTES # (AUTO) 0.7 /CMM (0.8-4.8); LYMPHOCYTES % (AUTO) 2.1 % (20.0-44.0); MEAN CORPUSCULAR HGB CONC 32 g/dl (31.0-36.0); MEAN CORPUSCULAR VOLUME 93 fL (80-96); MONOCYTES # (AUTO) 0.7 /CMM (0.1-1.30); MONOCYTES % (AUTO) 2.1 % (2.0-12.0); NEUTROPHILS # (AUTO) 31.5 /CMM (1.8-8.9); NEUTROPHILS % (AUTO) 95.8 % (43.0-81.0); PLATELET COUNT (AUTO) 80 /CMM (150-450); RED BLOOD CELL COUNT(AUTO) 3.24 MIL/uL (4.5-6.0)
[2020-02-26 04:31] LABS: CALCIUM, SERUM 8.3 mg/dL (8.5-10.1); CREATININE 2.1 mg/dL (0.6-1.3); POTASSIUM 4.1 mmol/L (3.5-5.1)
[2020-02-26 04:33] LABS: WHITE BLOOD COUNT (AUTO) 32.9 K/uL (4.3-11.0)
[2020-02-26 05:00] LABS: BAND % (MANUAL) 6 % (0.0-5.0); LYMPHOCYTES % (MANUAL) 1 % (16-48); MONOCYTES % (MANUAL) 1 % (0-11.0); NEUTROPHILS % (MANUAL) 92 (42-76)
[2020-02-26] MEDS: NOREPINEPHRINE 8 MG in IV NS 0.9% 242 ML IV PRN ×2 (05:55→13:31)
[2020-02-26] MEDS: CALCIUM ACETATE 667 MG TABLET PO SCH ×3 (08:00→18:00)
[2020-02-26] MEDS: Z GUARD REMEDY 2 OZ OINT TP SCH (08:15)
[2020-02-26] MEDS: DEXAMETHASONE SOD PHOSPHATE 10 MG/ML VIAL IV SCH (08:15)
[2020-02-26] MEDS: IV 1/2NS 1000 ML 1,000 ML IV PRN (09:37)
[2020-02-27] VITALS (76 sets, daily range): BP systolic 61–132; BP diastolic 37–85
[2020-02-27] MEDS: MEROPENEM 500 MG in IV NS 0.9% 50 ML IV SCH ×3 (01:04→23:58)
[2020-02-27] MEDS: IV 1/2NS 1000 ML 1,000 ML IV PRN ×2 (01:08→23:14)
[2020-02-27 05:18] LABS: BASOPHILS # (AUTO) 0.1 /CMM (0.0-0.2); BASOPHILS % (AUTO) 0.3 % (0.0-2.0); HEMATOCRIT 30 % (39-51); HEMOGLOBIN 9.7 g/dL (13.5-17.5); LYMPHOCYTES # (AUTO) 0.5 /CMM (0.8-4.8); LYMPHOCYTES % (AUTO) 1.7 % (20.0-44.0); MEAN CORPUSCULAR HGB CONC 32 g/dl (31.0-36.0); MEAN CORPUSCULAR VOLUME 94 fL (80-96); MONOCYTES # (AUTO) 0.7 /CMM (0.1-1.30); MONOCYTES % (AUTO) 2.5 % (2.0-12.0); NEUTROPHILS # (AUTO) 27.9 /CMM (1.8-8.9); NEUTROPHILS % (AUTO) 95.5 % (43.0-81.0); PLATELET COUNT (AUTO) 81 /CMM (150-450); RED BLOOD CELL COUNT(AUTO) 3.19 MIL/uL (4.5-6.0); WHITE BLOOD COUNT (AUTO) 29.2 K/uL (4.3-11.0)
[2020-02-27 05:31] LABS: CALCIUM, SERUM 8.2 mg/dL (8.5-10.1); CREATININE 1.9 mg/dL (0.6-1.3); POTASSIUM 4.2 mmol/L (3.5-5.1)
[2020-02-27 05:40] LABS: LYMPHOCYTES % (MANUAL) 2 % (16-48); MONOCYTES % (MANUAL) 3 % (0-11.0); NEUTROPHILS % (MANUAL) 95 (42-76)
[2020-02-27 07:52] LABS: ABG BASE EXCESS -0.2 mmol/L; ABG PCO2 31.4 mmHg (35.0-45.0); ABG PH 7.479 (7.350-7.450); ABG PO2 53.2 mmHg (75.0-100.0); AaDO2 484.2 mmHg; COHb 1.1 % (0.5-1.5); MetHb 0.4 % (0.0-1.5); O2Hb 84.7 % (94.0-97.0); SITE, ABG Right Radial; VENT MODE, BG NRB MASK
[2020-02-27] MEDS: CALCIUM ACETATE 667 MG TABLET PO SCH ×3 (08:00→17:21)
[2020-02-27] MEDS: DEXAMETHASONE SOD PHOSPHATE 10 MG/ML VIAL IV SCH (08:16)
[2020-02-27] MEDS: Z GUARD REMEDY 2 OZ OINT TP SCH (08:16)
--- NOTE | 2020-02-27 11:30 | NUR ---
RT NOTE: LATE ENTRY- ASSISTED WITH ORAL INTUBATION USING 7.5 ETT SECURED AT 25 CM MID LIP LINE. BILATERAL B/S AND EQUAL CHEST RISE NOTED. PATIENT PLACED ON MECHANICAL VENT WITH SETTINGS PER . VENT ALARMS SET AND AUDIBLE. AMBU BAG AT [facility].
[2020-02-27 13:29] LABS: ABG BASE EXCESS -5.8 mmol/L; ABG OXYGEN SATURATION 98.8 % (92.0-98.5); ABG PCO2 58.3 mmHg (35.0-45.0); ABG PH 7.201 (7.350-7.450); ABG PO2 362.4 mmHg (75.0-100.0); AaDO2 292.3 mmHg; COHb 1.4 % (0.5-1.5); MetHb 0.7 % (0.0-1.5); O2Hb 96.7 % (94.0-97.0); SITE, ABG Right Radial
[2020-02-27] MEDS ORDERED: PROPOFOL 10MG/ML 50ML 50 ML IV PRN (13:30)
[2020-02-27] MEDS ORDERED: ROCURONIUM BROMIDE 50 MG/5 ML ONE (14:37)
[2020-02-27] MEDS ORDERED: ETOMIDATE 2 MG/ML VIAL ONE (14:37)
[2020-02-27] MEDS ORDERED: SUCCINYLCHOLINE CHLORIDE 20 MG/ML VIAL ONE (14:37)
[2020-02-27] MEDS ORDERED: IV NS 0.9% 500 ML IV ONE (15:00)
--- NOTE | 2020-02-27 15:50 | NUR ---
RT NOTE: ETT PUSHED IN 2CM TO 27CM MID LIP LINE PER .
[2020-02-27] MEDS: HYDROCORTISONE SOD SUCCINATE 100 MG/2 ML VIAL IV SCH ×2 (16:29→21:46)
[2020-02-27] MEDS: PROPOFOL 100 ML IV PRN ×2 (16:30→21:38)
[2020-02-27] MEDS: NOREPINEPHRINE 8 MG in IV NS 0.9% 242 ML IV PRN ×2 (17:20→21:04)
[2020-02-28] VITALS (57 sets, daily range): BP systolic 70–134; BP diastolic 37–82
[2020-02-28] MEDS: PROPOFOL 100 ML IV PRN ×4 (02:59→22:59)
[2020-02-28 05:13] LABS: ABG BASE EXCESS -1.3 mmol/L; ABG OXYGEN SATURATION 96.2 % (92.0-98.5); ABG PH 7.459 (7.350-7.450); ABG PO2 94.9 mmHg (75.0-100.0); AaDO2 297.7 mmHg; COHb 1.6 % (0.5-1.5); MetHb 0.3 % (0.0-1.5); O2Hb 94.4 % (94.0-97.0); PEEP,BG 5 cm H2O; SITE, ABG Right Radial; VENT MODE, BG AC 24 500 60% +5; VT, ABG 500 mL
[2020-02-28 05:30] LABS: BASOPHILS % (AUTO) 0.2 % (0.0-2.0); HEMATOCRIT 24 % (39-51); HEMOGLOBIN 7.6 g/dL (13.5-17.5); LYMPHOCYTES # (AUTO) 0.8 /CMM (0.8-4.8); LYMPHOCYTES % (AUTO) 2.8 % (20.0-44.0); MEAN CORPUSCULAR HGB CONC 31 g/dl (31.0-36.0); MEAN CORPUSCULAR VOLUME 97 fL (80-96); MONOCYTES # (AUTO) 0.9 /CMM (0.1-1.30); MONOCYTES % (AUTO) 2.9 % (2.0-12.0); NEUTROPHILS # (AUTO) 28.7 /CMM (1.8-8.9); NEUTROPHILS % (AUTO) 94.1 % (43.0-81.0); PLATELET COUNT (AUTO) 71 /CMM (150-450)
[2020-02-28 05:35] LABS: CALCIUM, SERUM 7.6 mg/dL (8.5-10.1); CREATININE 2.4 mg/dL (0.6-1.3); POTASSIUM 4.4 mmol/L (3.5-5.1)
[2020-02-28 05:39] LABS: WHITE BLOOD COUNT (AUTO) 30.4 K/uL (4.3-11.0)
[2020-02-28] MEDS: HYDROCORTISONE SOD SUCCINATE 100 MG/2 ML VIAL IV SCH ×3 (05:44→21:30)
[2020-02-28] MEDS: NOREPINEPHRINE 8 MG in IV NS 0.9% 242 ML IV PRN ×3 (05:44→22:50)
[2020-02-28 05:52] LABS: LYMPHOCYTES % (MANUAL) 3 % (16-48); MONOCYTES % (MANUAL) 3 % (0-11.0); NEUTROPHILS % (MANUAL) 94 (42-76)
[2020-02-28 05:54] LABS: D-DIMER > 32.50 mg/L(FEU (0.17-0.50)
--- NOTE | 2020-02-28 07:30 | NUR ---
pt vented/intubated, tolerating vent well. renzo soft wrist restraints for safety. HOB elevated. SR/ST on tele. mix draining to gravity dark yellow urine. on levophed for BP support, propofol for sedation. NGT clamped. Addendum: 02/28/20 at 1910 by FRANKLYN SMITH RN endorsed by retail shift manager nurse that right hand fingers are purple. fingers are warm but discolored, unable to assess cap refill d/t pigmentation
--- NOTE | 2020-02-28 07:36 | NUR ---
RN notes Patient in bed, sedated with no distress noted. Breathing even and unlabored. No physical manifestation of pain or discomfort ON Profopol drip at 60mcg/kg/hr, No adverse effect noted. On Levo drip at 0.3to maintain sbp above 90's, no side effects noted. Noted right with purplish blackish skin discoloration. Endorsed to next shift for continuity of care.
--- NOTE | 2020-02-28 08:45 | NUR ---
DR SALAS ROUNDING ON PT. UPDATED MD OF PT STATUS.
[2020-02-28] MEDS: DEXAMETHASONE SOD PHOSPHATE 10 MG/ML VIAL IV SCH (09:10)
[2020-02-28] MEDS: CALCIUM ACETATE 667 MG TABLET PO SCH ×3 (09:10→18:49)
[2020-02-28] MEDS: Z GUARD REMEDY 2 OZ OINT TP SCH (09:10)
--- NOTE | 2020-02-28 12:15 | NUR ---
PHONE CONSENT FOR BLOOD TRANSFUSION OBTAINED FROM JUANA. VERIFIED BY DUMPER MOLD CLEANER LAURIE
[2020-02-28] MEDS ORDERED: ALTEPLASE CATHFLO 2 MG/VIAL XX ONE (13:00)
[2020-02-28] MEDS: MEROPENEM 500 MG in IV NS 0.9% 50 ML IV SCH (13:35)
--- NOTE | 2020-02-28 13:35 | NUR ---
CATHFLO GIVEN BY DIALYSIS NURSE
[2020-02-28] MEDS ORDERED: APIXABAN 2.5 MG TABLET PO SCH (17:00)
[2020-02-28] MEDS ORDERED: APIXABAN 5 MG TABLET PO SCH (17:00)
[2020-02-28] MEDS ORDERED: diphenhydrAMINE HCL 50 MG/ML VIAL IV ONE (18:00)
[2020-02-28] MEDS ORDERED: ACETAMINOPHEN 325 MG TABLET PO ONE (18:00)
--- NOTE | 2020-02-28 18:06 | NUR ---
PER DR HENRY, DISCONTINUE XARELTO AND DO NOT ADMINISTER TONIGHT.
--- NOTE | 2020-02-28 19:08 | NUR ---
Report given to Rolly HENRIQUEZ for ALFONSO. Pt tolerated PRBC transfusion well. Endorsed to rehabilitation medicine physician RN for cryoprecipitate transfusion
[2020-02-28] MEDS ORDERED: diphenhydrAMINE HCL 50 MG/ML VIAL ONE (20:22)
[2020-02-28] MEDS ORDERED: ACETAMINOPHEN 325 MG TABLET ONE (20:22)
--- NOTE | 2020-02-28 21:12 | NUR ---
Transfusing cryoprecipitate per Dr. Blanc orders. Patient tolerating well.
--- NOTE | 2020-02-28 21:36 | NUR ---
Patient tolerated transfusion of Cryo with no reactions noted.
[2020-02-29] VITALS (82 sets, daily range): BP systolic 75–139; BP diastolic 31–81
[2020-02-29] MEDS: MEROPENEM 500 MG in IV NS 0.9% 50 ML IV SCH ×2 (01:00→13:19)
[2020-02-29] MEDS: PROPOFOL 100 ML IV PRN ×3 (03:27→14:11)
[2020-02-29 05:27] LABS: BASOPHILS # (AUTO) 0.1 /CMM (0.0-0.2); BASOPHILS % (AUTO) 0.2 % (0.0-2.0); HEMATOCRIT 28 % (39-51); LYMPHOCYTES # (AUTO) 0.9 /CMM (0.8-4.8); LYMPHOCYTES % (AUTO) 2.6 % (20.0-44.0); MEAN CORPUSCULAR HGB CONC 32 g/dl (31.0-36.0); MEAN CORPUSCULAR VOLUME 96 fL (80-96); MONOCYTES # (AUTO) 0.9 /CMM (0.1-1.30); MONOCYTES % (AUTO) 2.6 % (2.0-12.0); NEUTROPHILS # (AUTO) 33.5 /CMM (1.8-8.9); NEUTROPHILS % (AUTO) 94.6 % (43.0-81.0); PLATELET COUNT (AUTO) 100 /CMM (150-450); RED BLOOD CELL COUNT(AUTO) 2.89 MIL/uL (4.5-6.0)
[2020-02-29 05:34] LABS: WHITE BLOOD COUNT (AUTO) 35.4 K/uL (4.3-11.0)
[2020-02-29 05:52] LABS: CALCIUM, SERUM 7.8 mg/dL (8.5-10.1); CREATININE 1.9 mg/dL (0.6-1.3); POTASSIUM 3.9 mmol/L (3.5-5.1)
[2020-02-29] MEDS: HYDROCORTISONE SOD SUCCINATE 100 MG/2 ML VIAL IV SCH ×3 (06:11→21:10)
[2020-02-29 06:12] LABS: LYMPHOCYTES % (MANUAL) 3 % (16-48); MONOCYTES % (MANUAL) 3 % (0-11.0); NEUTROPHILS % (MANUAL) 94 (42-76)
[2020-02-29] MEDS: CALCIUM ACETATE 667 MG TABLET PO SCH (08:00)
--- NOTE | 2020-02-29 08:19 | NUR ---
Patient remains in no acute distress in bed. patient tolerating vent setting well and is sedated on propofol. patient has OG Tube that is clean dry intact and patent with free water flush. Patient is contracted and difficult to offload extremities. offload extremites with pillows as best as possible. Patient cotninues on Levo @ 0.1 titrated down from 0.3. bed in low lock position with rials up x 2. call light within reach and all safety measures ensured and carried out. will endorse care to am FLORENCE Shankar for continuity of care.
[2020-02-29 08:36] LABS: ABG BASE EXCESS -4.6 mmol/L; ABG OXYGEN SATURATION 93.6 % (92.0-98.5); ABG PCO2 30.3 mmHg (35.0-45.0); ABG PH 7.419 (7.350-7.450); ABG PO2 74.9 mmHg (75.0-100.0); AaDO2 247.5 mmHg; COHb 2.4 % (0.5-1.5); MetHb 0.3 % (0.0-1.5); O2Hb 91.1 % (94.0-97.0); PEEP,BG 5 cm H2O; SITE, ABG Right Brachial; VT, ABG 500 mL
[2020-02-29] MEDS: NOREPINEPHRINE 8 MG in IV NS 0.9% 242 ML IV PRN (08:59)
--- NOTE | 2020-02-29 09:04 | NUR ---
DIALYSIS STARTED AT 0830, ALL MEDS HELD TILL AFTER DIALYSIS PER PROTOCOL
--- NOTE | 2020-02-29 09:14 | NUR ---
VENT CHANGES BELOW PER DR. COLEY: VT 450 ML Addendum: 02/29/20 at 0914 by JOVANY LUU RT Amended: Links added.
[2020-02-29] MEDS: Z GUARD REMEDY 2 OZ OINT TP SCH (10:51)
[2020-02-29 12:38] LABS: D-DIMER > 35.20 mg/L(FEU (0.17-0.50)
[2020-02-29] MEDS ORDERED: PHARMACY TO CHANGE PO MEDS TO GT/NG XX PRN (13:00)
[2020-02-29] MEDS: SEVELAMER CARBONATE 800 MG POWD.PACK NG SCH ×2 (13:27→21:10)
[2020-02-29] MEDS: IV 1/2NS 1000 ML 1,000 ML IV PRN (15:48)
--- NOTE | 2020-02-29 20:00 | NUR ---
Received patient intubated to mechanical vent on full vent support.Vent settings well tolerated. Sedated on Diprivan gtt.SR.VSS.Patient on Levophed gtt for BP support and will titrate accordingly to keep SBP>90.OGT intact and placement verified and clamped.Both upper and lower extremities contracted will repositioned q 2 hrs offloading pressure points.FC to gravity drainage.No acute distress noted.Safety precaution maintained.Call light at bedside.Continue monitoring.
[2020-03-01] VITALS (45 sets, daily range): BP systolic 100–146; BP diastolic 58–89
[2020-03-01] MEDS: MEROPENEM 500 MG in IV NS 0.9% 50 ML IV SCH ×2 (01:31→12:56)
[2020-03-01] MEDS: PROPOFOL 100 ML IV PRN ×3 (03:01→20:04)
--- NOTE | 2020-03-01 04:35 | NUR ---
Patient AM ABG's resulted pH= 7.46,pO2 =50.5,pCO2 26.9,hco3=19.1 RT adjusted FIO2 to 70%. No acute distress noted.
[2020-03-01 04:41] LABS: ABG BASE EXCESS -3.8 mmol/L; ABG OXYGEN SATURATION 84.5 % (92.0-98.5); ABG PCO2 26.9 mmHg (35.0-45.0); ABG PH 7.469 (7.350-7.450); ABG PO2 50.5 mmHg (75.0-100.0); AaDO2 275.7 mmHg; COHb 2.6 % (0.5-1.5); O2Hb 82.3 % (94.0-97.0); SITE, ABG Left Brachial
[2020-03-01 04:57] LABS: BASOPHILS % (AUTO) 0.1 % (0.0-2.0); HEMATOCRIT 26 % (39-51); HEMOGLOBIN 8.5 g/dL (13.5-17.5); LYMPHOCYTES # (AUTO) 0.6 /CMM (0.8-4.8); LYMPHOCYTES % (AUTO) 2.1 % (20.0-44.0); MEAN CORPUSCULAR HGB CONC 33 g/dl (31.0-36.0); MEAN CORPUSCULAR VOLUME 96 fL (80-96); MONOCYTES # (AUTO) 0.6 /CMM (0.1-1.30); NEUTROPHILS # (AUTO) 28.8 /CMM (1.8-8.9); NEUTROPHILS % (AUTO) 95.8 % (43.0-81.0); PLATELET COUNT (AUTO) 87 /CMM (150-450)
[2020-03-01 05:03] LABS: WHITE BLOOD COUNT (AUTO) 30.1 K/uL (4.3-11.0)
[2020-03-01] MEDS: SEVELAMER CARBONATE 800 MG POWD.PACK NG SCH ×3 (05:03→23:08)
[2020-03-01] MEDS: HYDROCORTISONE SOD SUCCINATE 100 MG/2 ML VIAL IV SCH ×3 (05:03→21:39)
[2020-03-01 05:13] LABS: ALBUMIN 1.5 g/dL (3.4-5.0); BILIRUBIN,TOTAL 0.8 mg/dL (0.2-1.0); CALCIUM, SERUM 7.6 mg/dL (8.5-10.1); CREATININE 1.4 mg/dL (0.6-1.3); MAGNESIUM 1.8 mg/dL (1.8-2.4); PHOSPHORUS 4.1 mg/dL (2.5-4.9); POTASSIUM 3.4 mmol/L (3.5-5.1); TOTAL PROTEIN, SERUM 5.8 g/dL (6.4-8.2)
[2020-03-01 05:14] LABS: D-DIMER 35.2 mg/L(FEU (0.17-0.50)
[2020-03-01 05:35] LABS: LYMPHOCYTES % (MANUAL) 3 % (16-48); MONOCYTES % (MANUAL) 2 % (0-11.0); NEUTROPHILS % (MANUAL) 95 (42-76)
--- NOTE | 2020-03-01 06:00 | NUR ---
Patient resting.VSS.SR.Bed bath rendered and complete linens changed.Turned and repositioned. Tolerating vent settings.IVF and Diprivan gtt infusing.All due medications administered.Levophed gtt titrated off.BP WNL.BM X1.Good urine output.Will endorse to day shift for ALFONSO.
--- NOTE | 2020-03-01 08:50 | NUR ---
vent changes below per dr. pandya: PEEP + 8 RN NOTIFIED ON CHANGES ABOVE. Addendum: 03/01/20 at 0852 by JOVANY LUU RT Amended: Links added.
[2020-03-01] MEDS: Z GUARD REMEDY 2 OZ OINT TP SCH (11:42)
[2020-03-01] MEDS: IV 1/2NS 1000 ML 1,000 ML IV PRN (12:50)
--- NOTE | 2020-03-01 14:39 | NUR ---
RN OBSERVED FINGERS ON RIGHT HAND PURPLE AND BLACK, APPEARS CYANOTIC, PULSES PRESENT, WARM TO TOUCH, NAIL BEDS BLACK. DR. SALAS NOTIFIED. ORDERS FOR DOPPLER OF RIGHT ARM AND HAND ORDERED.
--- NOTE | 2020-03-01 14:45 | NUR ---
DR HENRY NOTIFIED OF FINGERS ON RIGHT HAND BLACK
--- NOTE | 2020-03-01 15:45 | NUR ---
[employer] TECH INFORMED RN THAT PER DR. ARREGUIN THEY CAN NOT GO INTO COVID ROOMS D/T PROLONGED EXPOSURE. DR. SALAS NOTIFIED
--- NOTE | 2020-03-01 16:36 | NUR ---
DR. HENRY CALLED RN STATING SHE WILL START PATIENT ON HEPARIN PROF, REGARDLESS OF LOW PLATELETS AND DROPPING HGB D/T POSSIBLE THROMBOSIS IN RIGHT ARM.
[2020-03-01] MEDS: NEPRO 1,000 ML BOTTLE GT PRN (17:33)
--- NOTE | 2020-03-01 20:22 | NUR ---
RT NOTE PT RECEIVED INTUBATED WITH 7.5 ET TUBE @ 27 CM ON LEFT LIP LINE. CUFF INFLATED. AMBU BAG @ HOB. SX DONE, SMALL SECRETIONS NOTED. ALARMS ON AND AUDIBLE. NO DISTRESS NOTED AT THIS TIME. WILL CONTINUE TO MONITOR CLOSELY. VENT PLUGGED TO RED OUTLET.
[2020-03-01] MEDS ORDERED: VANCOMYCIN 1.25 GM in IV D5W 250 ML IV ONE (20:30)
[2020-03-01] MEDS: METRONIDAZOLE 500 MG TABLET NG SCH (21:36)
[2020-03-01] MEDS: HEPARIN SODIUM, PORCINE 5000 UNITS/1 ML VIAL SQ SCH (21:38)
[2020-03-01] MEDS ORDERED: VANCOMYCIN 1 GM VIAL ONE (22:50)
[2020-03-02] VITALS (53 sets, daily range): BP systolic 82–116; BP diastolic 50–77
[2020-03-02] MEDS: MEROPENEM 500 MG in IV NS 0.9% 50 ML IV SCH ×2 (01:20→12:24)
[2020-03-02 05:01] LABS: BASOPHILS # (AUTO) 0.1 /CMM (0.0-0.2); BASOPHILS % (AUTO) 0.3 % (0.0-2.0); EOSINOPHILS % (AUTO) 0.1 % (0.0-6.0); HEMATOCRIT 24 % (39-51); HEMOGLOBIN 7.7 g/dL (13.5-17.5); LYMPHOCYTES # (AUTO) 0.6 /CMM (0.8-4.8); LYMPHOCYTES % (AUTO) 2.7 % (20.0-44.0); MEAN CORPUSCULAR HGB CONC 32 g/dl (31.0-36.0); MEAN CORPUSCULAR VOLUME 98 fL (80-96); MONOCYTES # (AUTO) 0.3 /CMM (0.1-1.30); MONOCYTES % (AUTO) 1.4 % (2.0-12.0); NEUTROPHILS # (AUTO) 20.7 /CMM (1.8-8.9); NEUTROPHILS % (AUTO) 95.5 % (43.0-81.0); PLATELET COUNT (AUTO) 85 /CMM (150-450); RED BLOOD CELL COUNT(AUTO) 2.47 MIL/uL (4.5-6.0); WHITE BLOOD COUNT (AUTO) 21.6 K/uL (4.3-11.0)
[2020-03-02 05:09] LABS: CALCIUM, SERUM 7.6 mg/dL (8.5-10.1); CREATININE 1.1 mg/dL (0.6-1.3); POTASSIUM 3.1 mmol/L (3.5-5.1)
[2020-03-02 05:21] LABS: D-DIMER > 35.20 mg/L(FEU (0.17-0.50)
[2020-03-02 05:25] LABS: NEUTROPHILS % (MANUAL) 92 (42-76)
[2020-03-02 05:26] LABS: LYMPHOCYTES % (MANUAL) 3 % (16-48); MONOCYTES % (MANUAL) 5 % (0-11.0)
[2020-03-02 06:06] LABS: ABG OXYGEN SATURATION 95.6 % (92.0-98.5); ABG PCO2 30.2 mmHg (35.0-45.0); ABG PO2 86.5 mmHg (75.0-100.0); AaDO2 380.1 mmHg; COHb 2.7 % (0.5-1.5); MetHb 0.2 % (0.0-1.5); O2Hb 92.8 % (94.0-97.0); SITE, ABG Right Radial; VENT MODE, BG ac 24 450 70& +8
[2020-03-02] MEDS: HYDROCORTISONE SOD SUCCINATE 100 MG/2 ML VIAL IV SCH ×3 (06:14→20:09)
[2020-03-02] MEDS: METRONIDAZOLE 500 MG TABLET NG SCH ×3 (06:15→20:09)
[2020-03-02] MEDS: SEVELAMER CARBONATE 800 MG POWD.PACK NG SCH ×3 (06:15→20:09)
[2020-03-02] MEDS: PROPOFOL 100 ML IV PRN ×2 (07:32→16:48)
[2020-03-02] MEDS: HEPARIN SODIUM, PORCINE 5000 UNITS/1 ML VIAL SQ SCH ×2 (08:44→20:11)
[2020-03-02] MEDS: Z GUARD REMEDY 2 OZ OINT TP SCH (08:45)
[2020-03-02] MEDS: IV 1/2NS 1000 ML 1,000 ML IV PRN (09:33)
[2020-03-02] MEDS ORDERED: POTASSIUM CHLORIDE 20 MEQ POWDER PACKET GT ONE (10:00)
[2020-03-02] MEDS: NEPRO 1,000 ML BOTTLE GT PRN (12:53)
[2020-03-02] MEDS ORDERED: ACETAMINOPHEN 325 MG TABLET PO ONE ×2 (13:00→16:30)
[2020-03-02] MEDS ORDERED: diphenhydrAMINE HCL 50 MG/ML VIAL IV ONE ×2 (13:00→16:30)
[2020-03-02] MEDS: NOREPINEPHRINE 8 MG in IV NS 0.9% 242 ML IV PRN (16:04)
[2020-03-02] MEDS: VANCOMYCIN HCL 0.75 GM in IV D5W 250 ML IV SCH (16:33)
--- NOTE | 2020-03-02 18:00 | NUR ---
RN NOTES PT RECEIVING BLOOD TRANSFUSION ,VSS STABLE ,WILL ENDOSE TO [facility] SHIFT NURSE FOR CONTINUITY OF CARE
--- NOTE | 2020-03-02 20:30 | NUR ---
CART DRIVER NOTES PRBC TRANSFUSION INFUSED. NO SIGNS AND SYMPTOMS OF ADVERSE TRANSFUSION REACTION NOTED, WILL CONTINUE TO MONITOR
[2020-03-03] VITALS (69 sets, daily range): BP systolic 63–125; BP diastolic 30–85
[2020-03-03] MEDS: PROPOFOL 100 ML IV PRN ×5 (00:49→21:24)
[2020-03-03] MEDS: IV D5W 1,000 ML IV PRN ×2 (00:53→11:58)
[2020-03-03] MEDS: MEROPENEM 500 MG in IV NS 0.9% 50 ML IV SCH ×2 (00:55→12:54)
[2020-03-03 04:49] LABS: HEMATOCRIT 31 % (39-51); HEMOGLOBIN 9.9 g/dL (13.5-17.5); LYMPHOCYTES # (AUTO) 0.6 /CMM (0.8-4.8); MEAN CORPUSCULAR HGB CONC 32 g/dl (31.0-36.0); MEAN CORPUSCULAR VOLUME 92 fL (80-96); MONOCYTES # (AUTO) 0.4 /CMM (0.1-1.30); MONOCYTES % (AUTO) 1.3 % (2.0-12.0); NEUTROPHILS # (AUTO) 27.7 /CMM (1.8-8.9); NEUTROPHILS % (AUTO) 96.7 % (43.0-81.0); PLATELET COUNT (AUTO) 133 /CMM (150-450); RED BLOOD CELL COUNT(AUTO) 3.34 MIL/uL (4.5-6.0); WHITE BLOOD COUNT (AUTO) 28.7 K/uL (4.3-11.0)
[2020-03-03 04:59] LABS: CALCIUM, SERUM 7.8 mg/dL (8.5-10.1); CREATININE 1.5 mg/dL (0.6-1.3); MAGNESIUM 1.9 mg/dL (1.8-2.4); PHOSPHORUS 5.3 mg/dL (2.5-4.9); POTASSIUM 4.3 mmol/L (3.5-5.1)
[2020-03-03 05:15] LABS: ABG BASE EXCESS -1.4 mmol/L; ABG OXYGEN SATURATION 95.6 % (92.0-98.5); ABG PH 7.379 (7.350-7.450); ABG PO2 86.4 mmHg (75.0-100.0); AaDO2 296.3 mmHg; COHb 1.5 % (0.5-1.5); MetHb 0.3 % (0.0-1.5); O2Hb 93.9 % (94.0-97.0); PEEP,BG 8 cm H2O; SITE, ABG Right Brachial; VENT MODE, BG AC 24 400 60% +8; VT, ABG 400 mL
[2020-03-03 06:13] LABS: D-DIMER 35.2 mg/L(FEU (0.17-0.50)
[2020-03-03] MEDS: METRONIDAZOLE 500 MG TABLET NG SCH ×3 (06:13→20:06)
[2020-03-03] MEDS: HYDROCORTISONE SOD SUCCINATE 100 MG/2 ML VIAL IV SCH ×3 (06:13→20:05)
[2020-03-03] MEDS: VANCOMYCIN HCL 0.75 GM in IV D5W 250 ML IV SCH ×3 (06:13→17:00)
[2020-03-03] MEDS: SEVELAMER CARBONATE 800 MG POWD.PACK NG SCH ×3 (06:14→20:09)
--- NOTE | 2020-03-03 08:00 | NUR ---
RN NOTES 800CC OF DARK COLOR GASTRIC DRAINAGE NOTED DURING GT RESIDUAL CHECK .TF HELD , DR MAY LOVETT, NEW ORDER RECEIVED .
[2020-03-03] MEDS: Z GUARD REMEDY 2 OZ OINT TP SCH (08:08)
[2020-03-03] MEDS: HEPARIN SODIUM, PORCINE 5000 UNITS/1 ML VIAL SQ SCH (09:00)
[2020-03-03] MEDS: NOREPINEPHRINE 8 MG in IV NS 0.9% 242 ML IV PRN ×2 (09:31→12:48)
--- NOTE | 2020-03-03 10:30 | NUR ---
RN NOTES CALL RECEIVED FROM PT'S MOTHER , JUANA. MOTHER INFORMED REGARDING PT'S STATUS AND PT MOTHER REQUESTING DNR STATUS, DR OLVERA NOTIFIED. ORDER PLACED FOR DNR STATUS PER MD ORDER .
[2020-03-03] MEDS: PANTOPRAZOLE 40 MG VIAL IV SCH ×2 (11:39→20:05)
[2020-03-03 11:44] LABS: BASOPHILS # (AUTO) 0.1 /CMM (0.0-0.2); BASOPHILS % (AUTO) 0.2 % (0.0-2.0); HEMATOCRIT 33 % (39-51); HEMOGLOBIN 10.3 g/dL (13.5-17.5); LYMPHOCYTES # (AUTO) 0.6 /CMM (0.8-4.8); LYMPHOCYTES % (AUTO) 1.9 % (20.0-44.0); MEAN CORPUSCULAR HGB CONC 31 g/dl (31.0-36.0); MEAN CORPUSCULAR VOLUME 96 fL (80-96); MONOCYTES # (AUTO) 0.3 /CMM (0.1-1.30); MONOCYTES % (AUTO) 1.2 % (2.0-12.0); NEUTROPHILS # (AUTO) 28.7 /CMM (1.8-8.9); NEUTROPHILS % (AUTO) 96.7 % (43.0-81.0); PLATELET COUNT (AUTO) 171 /CMM (150-450); RED BLOOD CELL COUNT(AUTO) 3.47 MIL/uL (4.5-6.0); WHITE BLOOD COUNT (AUTO) 29.7 K/uL (4.3-11.0)
--- NOTE | 2020-03-03 13:30 | NUR ---
RN NOTES PT TRANSFERRED TO ROOM 120-1 , ICU OVER FLOW PER MD ORDER , NO BELONGINGS NOTED .
--- NOTE | 2020-03-03 13:53 | NUR ---
RN NOTES RECEIVED PATIENT FROM ICU SEDATED. BOTH EYES CLOSED. NG TUBE PRESENT. PATIENT'S EXTREMITIES ARE BLUE AND COOL TO THE TOUCH. DOMINGUEZ CATHETER PRESENT. RIGHT SUBCLAVIAN TLC RUNNING DIPROVAN 50 MCG/KG/MIN, LEVOPHED 1.0 MCG/KG/MIN, AND D5W 50 ML/HR. BED IS AT THE LOWEST POSITION, CALL NIETO WITHIN REACH, WILL CONTINUE TO MONITOR FOR THE REST OF THE SHIFT. Addendum: 03/03/20 at 1358 by BITA SAWYER RN OG TUBE PRESENT NOT NG. INTERMITTENT LOW SUCTION BEING ADMINISTERED.
--- NOTE | 2020-03-03 14:00 | NUR ---
icu over flow bp 85/[address] luna with order double concentration of Levophed, order carried out
[2020-03-03] MEDS: NOREPINEPHRINE 32 MG in IV NS 0.9% 218 ML IV PRN ×2 (14:08→23:31)
--- NOTE | 2020-03-03 16:48 | NUR ---
icu specialist note per pharmacy ok to give ismael
[2020-03-03] MEDS ORDERED: HEPARIN SODIUM, PORCINE 5000 UNITS/1 ML VIAL SQ SCH (17:00)
--- NOTE | 2020-03-03 18:46 | NUR ---
PATIENT IS RECEIVED IN BED SEDATED. PATIENT IS ON FIO2 100%, PEEP 8, AC 24. DOMINGUEZ IS IN PLACE. RIGHT HAND IS BLUE AND COLD TO THE TOUCG WITH PREVIOUS DAMAGE NOTED WITH MARKER. PART OF THE LEFT FOOT ARE BLACK WELL. R SUBCLAVIAN TLC AND R FEMORAL HD CATH ARE INTACT AND PATENT. BED IS IN THE LOWEST POSITION, CALL NIETO WITHIN REACH, 3 GUARD RAILS RAISED, AND ALL HOSPITAL SAFETY PRECAUTIONS ARE BEING FOLLOWED. WILL ENDORSE TO GLYCERIN SUPERVISOR RN.
--- NOTE | 2020-03-03 18:48 | NUR ---
icu overflow rn note vanco level 32 will hold vancomycin pharmacist notified
--- NOTE | 2020-03-03 20:00 | NUR ---
PARTHA HOWELL SAMPLE PULLER INFORMED ABOUT THE BP OF THE PT 80/40 WITH MAX LEVOPHED AND DIPRIVAN ON 50MCG/KG/MIN AND PT IS DNR, PARTHA HOWELL SAMPLE PULLER ORDER NEOSYNEPHRINE TO TITRATE NEEDED NOTED AND CARRIED OUT
[2020-03-03] MEDS: PHENYLEPHRINE 100 MG in IV NS 0.9% 240 ML IV PRN (20:06)
[2020-03-03 20:26] LABS: OCCULT BLOOD STOOL POSITIVE (NEGATIVE)
--- NOTE | 2020-03-03 23:18 | NUR ---
PARTHA HOWELL STACK ATTENDANT MADE AWARE THAT PT BP IS STILL ON LOW 80'S DESPITE THE MAX RATE OF LEVOPHED AND NEOSYNEPHRINE LATEST BP IS 86/31, PARTHA HOWELL STACK ATTENDANT SEE THE PT WITH ORDER TO JUST KEEP MONITORING THE PT, PT IS ALREADY DNR AND ALL PRESSOR ALREADY MAX OUT
[2020-03-04] VITALS (16 sets, daily range): BP systolic 64–86; BP diastolic 31–50
[2020-03-04] MEDS: MEROPENEM 500 MG in IV NS 0.9% 50 ML IV SCH (00:26)
--- NOTE | 2020-03-04 02:35 | NUR ---
BP STILL ON THE LOW 80'S CHARGE NURSE AND ONCALL AWARE LATEST BP IS 82/31 HR 105 SPO2 100% WILL CONT TO MONITOR
[2020-03-04] MEDS: PROPOFOL 100 ML IV PRN (03:01)
[2020-03-04] MEDS: HYDROCORTISONE SOD SUCCINATE 100 MG/2 ML VIAL IV SCH (04:03)
[2020-03-04] MEDS: SEVELAMER CARBONATE 800 MG POWD.PACK NG SCH (04:03)
[2020-03-04] MEDS: METRONIDAZOLE 500 MG TABLET NG SCH (04:03)
[2020-03-04] MEDS: IV D5W 1,000 ML IV PRN (06:12)
[2020-03-04] MEDS ORDERED: VANCOMYCIN 1 GM in IV D5W 250ml IV SCH (07:00)
[2020-03-04] MEDS: PHENYLEPHRINE 100 MG in IV NS 0.9% 240 ML IV PRN (07:15)
--- NOTE | 2020-03-04 07:17 | NUR ---
DUE VANCOMYCIN NOT ADMINISTERED YET DUE TO RANDOM VANCO NOT YET DRAWN, CHARGE NURSE MADE AWARE WILL ENDORSED TO AM SHIFT NURSE
--- NOTE | 2020-03-04 07:37 | NUR ---
PT ON BED SEDATED, ON ETT/VENT SETTING PER MD, ON TELE MONITOR WITH READING SINUS RHYTHM 60-80, ON LEVOPHED 1MCG/KG/MIN ALONSO 3MCG/KG/MIN DIPRIVAN 50 MCG/KG/MIN AND D5W @50ML/HR INFUSING WELL THRU RIGHT SUBCLAVIAN 3LUMEN CENTRAL LINE STILL SBP IS ON LOW 70'S, SPO2 100% ALL NEEDS ATTENDED NO PAIN NOTED, BED ON LOWEST POSITION AND LOCKED SIDE RAILS UP X2 WILL ENDORSED TO AM SHIFT NURSE
--- NOTE | 2020-03-04 07:45 | NUR ---
PT ON BED A HOB ELEVATED 45 DEGREES, SEDATED, ON ETT/VENT SETTING PER MD, ON TELE MONITOR WITH READING SINUS RHYTHM 60-80, ON LEVOPHED 1MCG/KG/MIN ALOSNO 3MCG/KG/MIN DIPRIVAN 50 MCG/KG/MIN AND D5W @50ML/HR INFUSING WELL. ALL ORDERED. THRU RIGHT SUBCLAVIAN 3LUMEN CENTRAL LINE STILL SBP IS ON LOW 70'S, SPO2 100% NO PAIN NOTED, BED ON LOWEST POSITION AND LOCKED SIDE RAILS UP X2. WILL TURN Q2H, MONITOR RESPONSE TO TREATMENT NECESSARY, REPORT TO MD NECESSARY.
--- NOTE | 2020-03-04 07:51 | NUR ---
PT 750 CALLED BY . NURSING FOLDING MACHINE TENDER NOTIFIED, FAMILY NOTIFIED, [facility] NOTIFIED.
--- NOTE | 2020-03-04 08:00 | NUR ---
patient no heart rate,no vs,dr. ivan notified,pt. DNR/DNI.PRIMARY RN AWARE.patient pronounced
== END 2020-03-04 12:03 | disposition expired | DRG 720 ==
LOC: ER 17:39 → TRANSITION 19:28 → ICU 20:33 → ICUOV 03-03 13:50
PROVIDERS: ADMIT Nurse Practitioner Acute Care; ATTEND Internal Medicine
PROC: 06HY33Z Insertion of Infusion Device into Lower Vein, Percutaneous Approach (ICD-10-PCS; 2020-02-19)
PROC: 05H533Z Insertion of Infusion Device into Right Subclavian Vein, Percutaneous Approach (ICD-10-PCS; 2020-02-19)
PROC: B546ZZA Ultrasonography of Right Subclavian Vein, Guidance (ICD-10-PCS; 2020-02-19)
PROC: 5A1955Z Respiratory Ventilation, Greater than 96 Consecutive Hours (ICD-10-PCS; principal; 2020-02-27)
PROC: 0BH18EZ Insertion of Endotracheal Airway into Trachea, Via Natural or Artificial Opening Endoscopic (ICD-10-PCS; 2020-02-27)
PROC: 30233N1 Transfusion of Nonautologous Red Blood Cells into Peripheral Vein, Percutaneous Approach (ICD-10-PCS; 2020-02-28)
PROC: 30233M1 Transfusion of Nonautologous Plasma Cryoprecipitate into Peripheral Vein, Percutaneous Approach (ICD-10-PCS; 2020-02-28)
DX: A41.89 Other specified sepsis (principal); U07.1 COVID-19; R65.21 Severe sepsis with septic shock; J96.01 Acute respiratory failure with hypoxia; I21.A1 Myocardial infarction type 2; J12.82 Pneumonia due to coronavirus disease 2019; G93.1 Anoxic brain damage, not elsewhere classified; N17.0 Acute kidney failure with tubular necrosis; E43 Unspecified severe protein-calorie malnutrition; E87.2 Acidosis; E87.5 Hyperkalemia; E86.1 Hypovolemia; G92 Toxic encephalopathy; N39.0 Urinary tract infection, site not specified; Z88.1 Allergy status to other antibiotic agents; Z99.2 Dependence on renal dialysis; I10 Essential (primary) hypertension; B96.4 Proteus (mirabilis) (morganii) as the cause of diseases classified elsewhere; D64.9 Anemia, unspecified; E27.40 Unspecified adrenocortical insufficiency; Z66 Do not resuscitate; F20.9 Schizophrenia, unspecified; E88.09 Other disorders of plasma-protein metabolism, not elsewhere classified; F29 Unspecified psychosis not due to a substance or known physiological condition; J15.9 Unspecified bacterial pneumonia; N18.9 Chronic kidney disease, unspecified; E87.0 Hyperosmolality and hypernatremia; N40.1 Benign prostatic hyperplasia with lower urinary tract symptoms; D65 Disseminated intravascular coagulation [defibrination syndrome]; I95.9 Hypotension, unspecified; K92.2 Gastrointestinal hemorrhage, unspecified
CPT/HCPCS: 31720; 36415; 36600; 71045-TC; 76770-TC; 80048-TC; 80053-TC; 80076-TC; 80202-TC; 81001; 82272-TC; 82533; 82550-TC; 82553; 82728-TC; 82784; 82803-TC; 82962-TC; 83605-TC; 83615-TC; 83735-TC; 84100-TC; 84155; 84165; 84484-TC; 85025-TC; 85378-TC; 85385-TC; 85396; 85610-TC; 85652-TC; 85730-TC; 86022; 86140-TC; 86225; 86235; 86334; 86431-TC; 86706; 86803; 86850-TC; 87040-TC; 87081-TC; 87086-TC; 87186-TC; 87340; 90935-TC; 92526; 92611-TC; 94002-TC; 94003-TC; 94760-TC; 94762-TC; 94799-TC; A4624; C1750; C1751; C9113; C9803; G0378; J0330; J0456; J0610; J1100; J1200; J1644; J1720; J1815; J1940; J2185; J2370; J2543; J2997; J3370; J3490; J7030; J7040; J7050; J7060; J7070; P9012; P9016-BL; U0003